=== PATIENT | male | born 1935 | race Caucasian/White ===

== ENCOUNTER 2021-01-29 20:23 | Inpatient (IN) | payer MEDICARE, OTHER ==
[~2021-01-29] VITALS: Ht 185.4 cm; Wt 104.5 kg
[2021-01-29 21:42] LABS: BASOPHILS # (AUTO) 0.2 X10'3 (0-0.2); BASOPHILS % (AUTO) 1.6 % (0-1); EOSINOPHILS # (AUTO) 0.3 X10'3 (0-0.9); EOSINOPHILS % (AUTO) 2.2 % (0-6); HEMATOCRIT 40.1 % (42.0-52.0); HEMOGLOBIN 14.1 g/dl (14.0-17.9); LYMPHOCYTES # (AUTO) 1.3 X10'3 (1.1-4.8); LYMPHOCYTES % (AUTO) 10.7 % (21-51); MEAN CORPUSCULAR HEMOGLOBIN 34.4 PG (27.0-31.0); MEAN CORPUSCULAR HGB CONC 35.2 g/dL (33.0-36.5); MEAN CORPUSCULAR VOLUME 97.6 FL (78-98); MEAN PLATELET VOLUME 8.5 FL (7.4-10.4); MONOCYTES # (AUTO) 0.6 X10'3 (0-0.9); MONOCYTES % (AUTO) 4.8 % (2-12); NEUTROPHILS # (AUTO) 9.6 X10'3 (1.8-7.7); NEUTROPHILS % (AUTO) 80.7 % (42-75); PLATELET COUNT 249 X10'3 (140-440); RED BLOOD COUNT 4.11 X10'6 (4.70-6.10); RED CELL DISTRIBUTION WIDTH 13.2 % (11.5-14.5); WHITE BLOOD COUNT 11.9 X10'3 (4.5-11.0)
[2021-01-29 21:55] LABS: ALANINE AMINOTRANSFERASE 18 U/L (12-78); ALBUMIN 3.6 G/DL (3.4-5.0); ALBUMIN/GLOBULIN RATIO 0.8 (1.1-1.5); ALKALINE PHOSPHATASE 92 IU/L (46-116); ANION GAP 12 (8-16); ASPARTATE AMINO TRANSFERASE 23 U/L (10-37); BILIRUBIN,TOTAL 0.8 MG/DL (0.1-1.0); BLOOD UREA NITROGEN 14 MG/DL (7-18); BUN/CREATININE RATIO 15.4 (5.4-32.0); CALCIUM 8.9 MG/DL (8.5-10.1); CHLORIDE 106 MMOL/L (99-107); CREATININE 0.91 MG/DL (0.60-1.10); GLUCOSE 98 MG/DL (70-104); SODIUM 141 MMOL/L (135-145); TOTAL CARBON DIOXIDE 22.7 MMOL/L (24-32); TOTAL PROTEIN 8.2 G/DL (6.4-8.2); eGFR 79 ML/MIN
[2021-01-29 22:01] LABS: MAGNESIUM 2.3 MG/DL (1.5-2.4)
[2021-01-29] MEDS ORDERED: iohexol 350MG/ML 100ml bottle IV ONE (22:13)
[2021-01-29] MEDS ORDERED: BRIM5DRO2 EACHEYE (22:15)
[2021-01-29] MEDS ORDERED: ASPI-611 PO (22:15)
[2021-01-29] MEDS ORDERED: ASPI-1053 PO (22:15)
[2021-01-29] MEDS ORDERED: LEVO175T7 PO (22:15)
[2021-01-29 22:48] LABS: PLATELET ESTIMATE NORMAL; TOTAL CELLS COUNTED 100
[2021-01-29 22:50] LABS: BURR CELLS FFEW; LARGE PLATELETS FEW
[2021-01-29] MEDS ORDERED: enoxaparin 100mg/ml syringe SUBCUT ONE (23:35)
[2021-01-30] MEDS ORDERED: HYDROcodone/acetaminophen 5mg/325mg tablet PO PRN (01:10)
[2021-01-30] MEDS ORDERED: diphenhydrAMINE 50 mg/ml inj IV PRN (01:10)
[2021-01-30] MEDS ORDERED: HYDROcodone/acetaminophen 10/325mg tab PO PRN (01:10)
[2021-01-30] MEDS ORDERED: ipratropium/albuterol 3ml nebule NEB PRN (01:10)
[2021-01-30] MEDS ORDERED: morphine 2 MG/ML inj. syringe IV PRN ×2 (01:10)
[2021-01-30] MEDS ORDERED: ondansetron/PF 4mg/2ml inj IV PRN (01:10)
[2021-01-30] MEDS ORDERED: HYDROmorphone inj. 0.5 MG/0.5 ML DISP.SYRIN IV PRN (01:10)
[2021-01-30] MEDS ORDERED: mag hydrox/Alum hydrox/simeth 30ml oral suspension PO PRN (01:10)
[2021-01-30] MEDS: normal saline 1000ml 1,000 ML IV SCH ×3 (01:10→22:24)
[2021-01-30] MEDS ORDERED: acetaminophen 325mg tablet PO PRN ×2 (01:10)
[2021-01-30] MEDS ORDERED: diphenhydrAMINE 25mg capsule PO PRN (01:10)
[2021-01-30] MEDS ORDERED: magnesium hydroxide 30ml (MOM) UD suspension PO PRN (01:10)
[2021-01-30 01:50] LABS: CREATINE KINASE 98 U/L (39-308); LIPASE 175 U/L (73-393); PHOSPHORUS 2.3 MG/DL (2.3-4.5)
[2021-01-30 02:40] LABS: HEMOGLOBIN A1C 5.7 % (4.5-6.2)
[2021-01-30] MEDS: levoTHYROXINE 175mcg tablet PO SCH (08:00)
[2021-01-30] MEDS: brimonidine 0.2% 5 ML ophthalmic drops EACHEYE SCH ×2 (08:00→22:16)
[2021-01-30] MEDS: timolol 0.5% ophthalmic solution 5ml bottle EACHEYE SCH ×2 (08:00→22:16)
[2021-01-30] MEDS: docusate sod 100mg capsule PO SCH ×2 (08:31→22:14)
[2021-01-30] MEDS: enoxaparin 100mg/ml syringe SUBCUT SCH ×2 (08:31→22:15)
[2021-01-30] MEDS: aspirin 81mg tab.chew PO SCH (08:32)
[2021-01-30] MEDS: pantoprazole 40mg Tablet.DR PO SCH (08:32)
[2021-01-30] MEDS: levoFLOXACIN 750MG TABLET PO SCH (13:20)
[2021-01-30] MEDS ORDERED: furosemide 10 MG/1 ML 10ml inj IV ONE (15:25)
--- NOTE | 2021-01-30 18:58 | NUR ---
Patient resting comfortably in bed and has completed dinner. He has no complaint at this time.
[2021-01-30] MEDS ORDERED: temazepam 15mg capsule PO PRN (21:00)
[2021-01-30] MEDS: lactobacillus rhamnosus 10,000 MMU CELLS/CAPSULE PO SCH (22:14)
[2021-01-31] VITALS (7 sets, daily range): BP systolic 120–152; BP diastolic 57–81
--- NOTE | 2021-01-31 05:21 | NUR ---
Patient transfer from ED into PCU Room 3027M in a stable condition, vital signs stable, orientated to room, bed in lower position, call light within reach will continue to monitor and report changes
[2021-01-31 06:09] LABS: BASOPHILS # (AUTO) 0.1 X10'3 (0-0.2); EOSINOPHILS # (AUTO) 0.2 X10'3 (0-0.9); EOSINOPHILS % (AUTO) 2.2 % (0-6); HEMATOCRIT 36.1 % (42.0-52.0); HEMOGLOBIN 12.4 g/dl (14.0-17.9); LYMPHOCYTES % (AUTO) 20.4 % (21-51); MEAN CORPUSCULAR HGB CONC 34.4 g/dL (33.0-36.5); MEAN CORPUSCULAR VOLUME 98.9 FL (78-98); MONOCYTES # (AUTO) 0.8 X10'3 (0-0.9); MONOCYTES % (AUTO) 7.9 % (2-12); NEUTROPHILS # (AUTO) 6.8 X10'3 (1.8-7.7); NEUTROPHILS % (AUTO) 68.5 % (42-75); PLATELET COUNT 210 X10'3 (140-440); RED BLOOD COUNT 3.65 X10'6 (4.70-6.10); RED CELL DISTRIBUTION WIDTH 13.2 % (11.5-14.5); WHITE BLOOD COUNT 9.9 X10'3 (4.5-11.0)
--- NOTE | 2021-01-31 06:20 | NUR ---
Problems reprioritized. Patient report given, questions answered & plan of care reviewed with Deepak LAM .
[2021-01-31 06:31] LABS: ALANINE AMINOTRANSFERASE 11 U/L (12-78); ALBUMIN 2.7 G/DL (3.4-5.0); ALBUMIN/GLOBULIN RATIO 0.7 (1.1-1.5); ALKALINE PHOSPHATASE 67 IU/L (46-116); ANION GAP 11 (8-16); ASPARTATE AMINO TRANSFERASE 15 U/L (10-37); BILIRUBIN,TOTAL 0.5 MG/DL (0.1-1.0); BLOOD UREA NITROGEN 19 MG/DL (7-18); BUN/CREATININE RATIO 23.2 (5.4-32.0); CALCIUM 8.2 MG/DL (8.5-10.1); CHLORIDE 110 MMOL/L (99-107); CHOL/HDL RATIO 3.4 (0.00-4.99); CHOLESTEROL 122 MG/DL (0-200); CREATININE 0.82 MG/DL (0.60-1.10); GLUCOSE 90 MG/DL (70-104); HDL CHOLESTEROL 36 MG/DL (35-60); LDL CHOLESTEROL 71 MG/DL (50-100); SODIUM 143 MMOL/L (135-145); TOTAL CARBON DIOXIDE 22.3 MMOL/L (24-32); TOTAL PROTEIN 6.6 G/DL (6.4-8.2); TRIGLYCERIDES 64 MG/DL (20-135); eGFR 89 ML/MIN
[2021-01-31] MEDS: normal saline 1000ml 1,000 ML IV SCH (07:10)
[2021-01-31] MEDS: enoxaparin 100mg/ml syringe SUBCUT SCH ×2 (08:12→19:59)
[2021-01-31] MEDS: aspirin 81mg tab.chew PO SCH (08:13)
[2021-01-31] MEDS: levoTHYROXINE 175mcg tablet PO SCH (08:14)
[2021-01-31] MEDS: pantoprazole 40mg Tablet.DR PO SCH (08:14)
[2021-01-31] MEDS: docusate sod 100mg capsule PO SCH ×2 (08:14→20:00)
[2021-01-31] MEDS: lactobacillus rhamnosus 10,000 MMU CELLS/CAPSULE PO SCH ×2 (08:14→20:01)
[2021-01-31] MEDS: timolol 0.5% ophthalmic solution 5ml bottle EACHEYE SCH ×2 (08:15→20:00)
[2021-01-31] MEDS: brimonidine 0.2% 5 ML ophthalmic drops EACHEYE SCH ×2 (08:15→20:00)
[2021-01-31] MEDS: levoFLOXACIN 750MG TABLET PO SCH (11:33)
[2021-01-31] MEDS ORDERED: furosemide 40mg/4ml inj IV ONE (12:10)
[2021-02-01 02:00] VITALS: BP 127/61
[2021-02-01 06:12] LABS: BASOPHILS % (AUTO) 0.4 % (0-1); EOSINOPHILS # (AUTO) 0.3 X10'3 (0-0.9); EOSINOPHILS % (AUTO) 3.7 % (0-6); HEMATOCRIT 37.4 % (42.0-52.0); HEMOGLOBIN 13.1 g/dl (14.0-17.9); LYMPHOCYTES % (AUTO) 22.6 % (21-51); MEAN CORPUSCULAR HEMOGLOBIN 34.5 PG (27.0-31.0); MEAN CORPUSCULAR HGB CONC 34.9 g/dL (33.0-36.5); MEAN CORPUSCULAR VOLUME 98.6 FL (78-98); MEAN PLATELET VOLUME 8.4 FL (7.4-10.4); MONOCYTES # (AUTO) 0.9 X10'3 (0-0.9); MONOCYTES % (AUTO) 10.3 % (2-12); NEUTROPHILS # (AUTO) 5.5 X10'3 (1.8-7.7); PLATELET COUNT 249 X10'3 (140-440); RED BLOOD COUNT 3.79 X10'6 (4.70-6.10); RED CELL DISTRIBUTION WIDTH 13.1 % (11.5-14.5); WHITE BLOOD COUNT 8.7 X10'3 (4.5-11.0)
--- NOTE | 2021-02-01 06:38 | NUR ---
Problems reprioritized. Patient report given, questions answered & plan of care reviewed with GENARO Desai.
[2021-02-01 06:41] LABS: ALANINE AMINOTRANSFERASE 11 U/L (12-78); ALBUMIN 2.7 G/DL (3.4-5.0); ALBUMIN/GLOBULIN RATIO 0.6 (1.1-1.5); ALKALINE PHOSPHATASE 69 IU/L (46-116); ANION GAP 10 (8-16); ASPARTATE AMINO TRANSFERASE 12 U/L (10-37); BILIRUBIN,TOTAL 0.4 MG/DL (0.1-1.0); BLOOD UREA NITROGEN 18 MG/DL (7-18); CALCIUM 8.6 MG/DL (8.5-10.1); CHLORIDE 108 MMOL/L (99-107); GLUCOSE 100 MG/DL (70-104); POTASSIUM 3.9 MMOL/L (3.5-5.1); SODIUM 143 MMOL/L (135-145); TOTAL CARBON DIOXIDE 24.7 MMOL/L (24-32); eGFR 80 ML/MIN
[2021-02-01 06:59] VITALS: BP 138/82
[2021-02-01] MEDS: lactobacillus rhamnosus 10,000 MMU CELLS/CAPSULE PO SCH ×2 (08:00→21:09)
[2021-02-01] MEDS: brimonidine 0.2% 5 ML ophthalmic drops EACHEYE SCH ×2 (08:00→20:00)
[2021-02-01] MEDS: timolol 0.5% ophthalmic solution 5ml bottle EACHEYE SCH ×2 (08:00→20:00)
[2021-02-01] MEDS: pantoprazole 40mg Tablet.DR PO SCH (08:47)
[2021-02-01] MEDS: docusate sod 100mg capsule PO SCH ×2 (08:47→21:09)
[2021-02-01] MEDS: aspirin 81mg tab.chew PO SCH (08:47)
[2021-02-01] MEDS: enoxaparin 100mg/ml syringe SUBCUT SCH ×2 (08:48→21:08)
[2021-02-01 11:00] VITALS: BP 134/71
[2021-02-01] MEDS: levoTHYROXINE 175mcg tablet PO SCH (11:20)
[2021-02-01] MEDS: levoFLOXACIN 750MG TABLET PO SCH (11:20)
--- NOTE | 2021-02-01 12:28 | NUR ---
PAGER ID: [phone] MESSAGE: Tommy Romero [id number] Hacking and coughing persistently. Ok to give some cough drops/ Mucinex/ cough syrup? Thank you! Giselle [phone]
[2021-02-01 15:00] VITALS: BP 134/71
--- NOTE | 2021-02-01 17:19 | NUR ---
PAGER ID: [phone] MESSAGE: Tommy Romero [id number] Grandson Romeo would like to know what is going on cardio manuel, results of tests, and discharge plans for his grandfather. [phone] is his number. Giselle [id number]
[2021-02-01 18:00] VITALS: BP 152/74
--- NOTE | 2021-02-01 19:05 | NUR ---
GAVE REPORT TOT PRUDENCE GENARO.
--- NOTE | 2021-02-01 19:09 | NUR ---
Patient in room PCU 3024. I have received report from NAVEEN LAM and had the opportunity to ask questions and assume patient care.
[2021-02-01] MEDS: guaiFENesin ER 600mg tablet PO SCH (21:09)
[2021-02-01 22:00] VITALS: BP 131/67
[2021-02-02 06:00] VITALS: BP 143/70
--- NOTE | 2021-02-02 06:24 | NUR ---
Problems reprioritized. Patient report given, questions answered & plan of care reviewed with Regla LAM.
--- NOTE | 2021-02-02 06:30 | NUR ---
Patient in room PCU 3024. I have received report from Susanna Seth and SUSANNA Peoples and had the opportunity to ask questions and assume patient care.
[2021-02-02 06:51] LABS: ALANINE AMINOTRANSFERASE 22 U/L (12-78); ALBUMIN 2.7 G/DL (3.4-5.0); ALBUMIN/GLOBULIN RATIO 0.6 (1.1-1.5); ALKALINE PHOSPHATASE 70 IU/L (46-116); ANION GAP 10 (8-16); ASPARTATE AMINO TRANSFERASE 20 U/L (10-37); BILIRUBIN,TOTAL 0.4 MG/DL (0.1-1.0); BLOOD UREA NITROGEN 18 MG/DL (7-18); BUN/CREATININE RATIO 19.4 (5.4-32.0); CALCIUM 8.6 MG/DL (8.5-10.1); CHLORIDE 108 MMOL/L (99-107); CREATININE 0.93 MG/DL (0.60-1.10); GLUCOSE 94 MG/DL (70-104); POTASSIUM 3.9 MMOL/L (3.5-5.1); SODIUM 142 MMOL/L (135-145); TOTAL CARBON DIOXIDE 24.4 MMOL/L (24-32); TOTAL PROTEIN 6.9 G/DL (6.4-8.2); eGFR 77 ML/MIN
[2021-02-02 06:55] LABS: BASOPHILS # (AUTO) 0.1 X10'3 (0-0.2); BASOPHILS % (AUTO) 1.1 % (0-1); EOSINOPHILS # (AUTO) 0.3 X10'3 (0-0.9); EOSINOPHILS % (AUTO) 4.6 % (0-6); HEMATOCRIT 38.1 % (42.0-52.0); HEMOGLOBIN 13.3 g/dl (14.0-17.9); LYMPHOCYTES # (AUTO) 1.8 X10'3 (1.1-4.8); LYMPHOCYTES % (AUTO) 25.2 % (21-51); MEAN CORPUSCULAR HEMOGLOBIN 34.2 PG (27.0-31.0); MEAN CORPUSCULAR HGB CONC 34.9 g/dL (33.0-36.5); MEAN PLATELET VOLUME 8.9 FL (7.4-10.4); MONOCYTES # (AUTO) 0.7 X10'3 (0-0.9); MONOCYTES % (AUTO) 9.3 % (2-12); NEUTROPHILS # (AUTO) 4.4 X10'3 (1.8-7.7); NEUTROPHILS % (AUTO) 59.8 % (42-75); PLATELET COUNT 268 X10'3 (140-440); RED BLOOD COUNT 3.88 X10'6 (4.70-6.10); WHITE BLOOD COUNT 7.3 X10'3 (4.5-11.0)
[2021-02-02] MEDS: pantoprazole 40mg Tablet.DR PO SCH (07:37)
[2021-02-02] MEDS: lactobacillus rhamnosus 10,000 MMU CELLS/CAPSULE PO SCH (07:37)
[2021-02-02] MEDS: guaiFENesin ER 600mg tablet PO SCH (07:37)
[2021-02-02] MEDS: docusate sod 100mg capsule PO SCH (07:37)
[2021-02-02] MEDS: aspirin 81mg tab.chew PO SCH (07:37)
[2021-02-02] MEDS: enoxaparin 100mg/ml syringe SUBCUT SCH (07:38)
[2021-02-02] MEDS: brimonidine 0.2% 5 ML ophthalmic drops EACHEYE SCH (07:39)
[2021-02-02] MEDS: timolol 0.5% ophthalmic solution 5ml bottle EACHEYE SCH (08:00)
[2021-02-02] MEDS: levoTHYROXINE 175mcg tablet PO SCH (09:26)
[2021-02-02] MEDS ORDERED: APIX5TAB3 PO ×2 (10:44→10:46)
--- NOTE | 2021-02-02 10:54 | NUR ---
Page sent to ... [id number] Jonnie Romero: patient needs coupon for Eliquis if available. thanks, charles [phone]
[2021-02-02 11:00] VITALS: BP 102/64
--- NOTE | 2021-02-02 11:30 | NUR ---
Patient is ready for discharge. Says he needs to get a hold of his ride and someone that has the keys to his vehicle out front. floor winder aware of the hold up.
[2021-02-02] MEDS: levoFLOXACIN 750MG TABLET PO SCH (12:47)
--- NOTE | 2021-02-02 16:03 | NUR ---
Patient stable and appropriate for discharge home. IV removed. All belongings taken from room. New prescription e-scripted to [facility] in [place]. Patient was given a coupon for Eliquis prescription. All discharge education was given and reviewed with patient. All questions answered.
== END 2021-02-02 15:20 | disposition home or self-care (01) | DRG 175 ==
LOC: ER 20:24 → ED HOLD 01-30 01:16 → PCU 3S 01-31 00:40
PROVIDERS: ADMIT Family Medicine; ATTEND Family Medicine
PROC: B32T1ZZ Computerized Tomography (CT Scan) of Left Pulmonary Artery using Low Osmolar Contrast (ICD-10-PCS; principal; 2021-01-29)
PROC: B3201ZZ Computerized Tomography (CT Scan) of Thoracic Aorta using Low Osmolar Contrast (ICD-10-PCS; 2021-01-29)
PROC: B32S1ZZ Computerized Tomography (CT Scan) of Right Pulmonary Artery using Low Osmolar Contrast (ICD-10-PCS; 2021-01-29)
DX: I26.94 Multiple subsegmental thrombotic pulmonary emboli without acute cor pulmonale (principal); J96.01 Acute respiratory failure with hypoxia; I45.2 Bifascicular block; K80.10 Calculus of gallbladder with chronic cholecystitis without obstruction; I49.3 Ventricular premature depolarization; J20.9 Acute bronchitis, unspecified; I10 Essential (primary) hypertension; E03.9 Hypothyroidism, unspecified; Z20.822 Contact with and (suspected) exposure to COVID-19; Z79.899 Other long term (current) drug therapy; Z79.01 Long term (current) use of anticoagulants
CPT/HCPCS: 36415; 71045; 71275; 80053; 80061; 82550; 83036; 83605; 83690; 83735; 83880; 84100; 84443; 84484; 85007; 85025; 87040; 87081; 87635; 93005; 93306; 93970; 94640; 94760; 97116; 97161; 97530; 99285; C9803; G0378; J1650; J1940; J7030; Q9967

== ENCOUNTER 2021-02-05 12:02 | Emergency (ER) | payer MEDICARE, OTHER ==
[~2021-02-05] VITALS: Ht 182.9 cm; Wt 104.5 kg
[~2021-02-05 12:02] MED LIST: APIX5TAB3 PO; ASPI-1053 PO; BRIM5DRO2 EACHEYE; LEVO175T7 PO
[2021-02-05 12:06] VITALS: BP 148/83
[2021-02-05] MEDS ORDERED: GUAI400T92 PO (13:04)
[2021-02-05] MEDS ORDERED: BENZ-38 PO (13:12)
== END 2021-02-05 13:15 | disposition home or self-care (01) ==
LOC: ER 12:03
DX: J20.9 Acute bronchitis, unspecified (principal); J96.90 Respiratory failure, unspecified, unspecified whether with hypoxia or hypercapnia; R05.9 Cough, unspecified; Z87.01 Personal history of pneumonia (recurrent); Z79.82 Long term (current) use of aspirin; Z79.899 Other long term (current) drug therapy
CPT/HCPCS: 99283

== ENCOUNTER 2021-02-15 08:02 | Emergency (ER) | payer MEDICARE, OTHER ==
[~2021-02-15] VITALS: Ht 185.4 cm; Wt 100.0 kg
[~2021-02-15 08:02] MED LIST changes: +BENZ-38 PO; +GUAI400T92 PO
[2021-02-15 08:09] VITALS: BP 139/69
--- NOTE | 2021-02-15 08:24 | NUR ---
called patient's pharmacy/[address] regarding med dosage but still closed will re open at 0900.
[2021-02-15] MEDS ORDERED: apixaban 5mg tablet PO STA (09:16)
[2021-02-15] MEDS ORDERED: APIX5TAB3 PO (09:20)
== END 2021-02-15 09:43 | disposition home or self-care (01) ==
LOC: ER 08:02
DX: I26.99 Other pulmonary embolism without acute cor pulmonale (principal); Z76.0 Encounter for issue of repeat prescription; Z87.01 Personal history of pneumonia (recurrent); Z79.82 Long term (current) use of aspirin; Z79.899 Other long term (current) drug therapy
CPT/HCPCS: 99283